=== PATIENT | male | born 1950 | race Caucasian/White ===

== ENCOUNTER → 2017-12-14 | Day surgery (SDC) | payer MEDICARE ==
[2017-12-13 13:30] LABS: BASOPHILS % 0.4 % (0.0-1.0); EOSINOPHILS # (AUTO) 0.2 (0.0-0.4); EOSINOPHILS % 4.1 % (0.0-6.0); HEMATOCRIT 40.6 % (38.2-49.6); HEMOGLOBIN 14.3 g/dL (14.0-18.0); LYMPHOCYTES # (AUTO) 1.5 (1.0-3.2); LYMPHOCYTES % 30.2 % (18.0-39.1); MEAN CORPUSCULAR HEMOGLOBIN 30.2 pg (28-32); MEAN CORPUSCULAR HGB CONC 35.2 g/dL (31-35); MEAN CORPUSCULAR VOLUME 85.8 fL (81-99); MONOCYTES # (AUTO) 0.5 (0.2-0.8); MONOCYTES % 9.3 % (4.4-11.3); NEUTROPHILS # (AUTO) 2.8 (2.1-6.9); NEUTROPHILS % 55.8 % (38.7-80.0); PLATELET COUNT 131 x10e3/uL (140-360); RED BLOOD COUNT 4.73 x10e6/uL (4.3-5.7)
[~2017-12-14] MED LIST: ALIVE VITAMINS; ASPIR-LOW81 MG PO; BUPIVACAINE HCL 0.5% INJ 30 ML VIAL INJ ONE; CEFAZOLIN SOD 1 GM VIAL ONE; DOXYCYCLINE HY100 MG PO; FENTANYL CITRATE/PF 100MCG/2 ML INJ ONE; FUROSEMIDE PO; HYDROCODONE PO; LIDOCAINE 1% W/EPINEPHRINE 20 ML VIAL ONE; LIDOCAINE HCL 2% LOCAL INJ 5 ML SDV VIAL INJ ONE; MIDAZOLAM HCL 2 MG/2 ML VIAL ONE; ONDANSETRON HCL INJ 2 MG/ML VIAL ONE; PHENYLEPHRINE HCL 1% 10 MG/ML VIAL ONE; PROPOFOL IV EMULSION 10 MG/ML 20 ML VIAL ONE; SENIOR MULTIVITAMIN PO; TIZANIDINE HCL4 MG PO; VESICARE5 MG PO
--- NOTE | 2018-01-21 01:20 | Operative Report ---
DATE OF PROCEDURE: December 14, 2017 PREOPERATIVE DIAGNOSIS: Refractory urge incontinence. POSTOPERATIVE DIAGNOSIS: Refractory urge incontinence. OPERATIVE PROCEDURE PERFORMED: 1. Explantation of InterStim neurostimulator. 2. Explantation of InterStim lead array through a separate incision. ANESTHESIA: General. COMPLICATIONS: None. CLINICAL SUMMARY: Carlos Weiss is a 67-year-old man with refractory urge incontinence who had an InterStim placed. The patient needs to have an MRI and has elected to proceed with explantation of the InterStim. He understands the risks of bleeding, infection, injury to adjacent structures. He understands that he may very well have worsening of his incontinence and could only be helped with re-implantation of a new InterStim. He understood all these risks and elected to proceed. OPERATIVE PROCEDURE IN DETAIL: Informed consent was verified. Carlos Weiss was properly identified, taken to the operating room, placed on the operating table in the lateral position with all pressure points carefully well padded. Anesthesia was uneventfully begun. The patient's back and Botox were prepared and draped in usual sterile fashion and incision was made over the location of the lead on the right hand side and carried through the skin and subcutaneous layers until we identified the lead. We then carefully followed the lead to the level of the foramen. We then gently placed traction on the lead until the tines dislodged and the lead was able to be pulled out. We then made a secondary incision overlying the neurostimulator. We isolated the neurostimulator. We removed it as well as the lead and sent both pieces for histological identification. We then fulgurated the entire lining of the pocket of the neurostimulator. Copious irrigation was performed of both incisions. Local anesthesia was utilized throughout both incisions as well as surrounding the pocket. Both incisions were approximated in 2 layers utilizing absorbable sutures, Mastisol and Steri-Strips were applied as well as bio-occlusive dressings and the patient was uneventfully reversed from anesthesia, taken to recovery room in stable condition. There were no complications during the procedure. He tolerated the procedure well. We will follow the patient up in the office. Job#: [id number] GE cc:CLAUDIA ZIEGLER MD
== END | disposition home or self-care (01) ==
LOC: OR 11:57
PROVIDERS: ATTEND Urology
DX: Z45.49 Encounter for adjustment and management of other implanted nervous system device (principal); N39.41 Urge incontinence; N32.81 Overactive bladder; R35.1 Nocturia; N39.44 Nocturnal enuresis; R60.0 Localized edema; J44.9 Chronic obstructive pulmonary disease, unspecified; G47.33 Obstructive sleep apnea (adult) (pediatric); E66.01 Morbid (severe) obesity due to excess calories; Z01.810 Encounter for preprocedural cardiovascular examination; Z88.2 Allergy status to sulfonamides; Z79.82 Long term (current) use of aspirin; Z68.37 Body mass index [BMI] 37.0-37.9, adult; Z87.01 Personal history of pneumonia (recurrent); Z86.19 Personal history of other infectious and parasitic diseases; Z87.891 Personal history of nicotine dependence
CPT/HCPCS: 36415; 64585; 64595; 85025; 88300; 93005; J0690; J2001; J2250; J2370; J2405